=== PATIENT | male | born 1955 | race Caucasian/White ===

== ENCOUNTER → 2020-10-21 | Outpatient (CLI) | payer MEDICARE ==
[2020-10-21 10:42] LABS: EOS # 0.2 (0.04-0.40); EOS % 2.6 % (0.0-4.0); HEMATOCRIT 51.3 % (42.0-52.0); HEMOGLOBIN 17.1 g/dL (13.5-18.0); MEAN CELL VOLUME 92 fl (78-100); MEAN CORPUSCULAR HEMOGLOBIN 31 pg (27-31); MEAN CORPUSCULAR HGB CONC 33 g/dL (33-37); MEAN PLATELET VOLUME 9.9 fl (7.4-10.4); MONO # 0.7 (0.20-0.80); NEU # 4.9 (1.40-6.50); PLATELET COUNT 173 K/mm3 (130-400); RED BLOOD COUNT 5.58 M/mm3 (4.20-5.60); RED CELL DISTRIBUTION WIDTH 14.1 % (11.5-14.5); WHITE BLOOD COUNT 7.8 K/mm3 (4.8-10.8)
[2020-10-21 10:52] LABS: ALBUMIN 4.5 g/dL (3.4-4.8); POTASSIUM 4.1 mmol/L (3.5-5.1)
[2020-10-21 10:53] LABS: CALCIUM 9.6 mg/dL (8.3-10.5)
[2020-10-21 10:54] LABS: TOTAL PROTEIN 6.7 g/dL (6.2-8.1)
[2020-10-21 10:56] LABS: TOTAL BILIRUBIN 0.9 mg/dL (0.2-1.2)
[2020-10-21 12:31] LABS: URINE APPEARANCE CLEAR; URINE BILIRUBIN NEGATIVE (NEGATIVE); URINE BLOOD 50 ery/uL (NEGATIVE); URINE COLOR YELLOW; URINE GLUCOSE NEGATIVE (NEGATIVE); URINE KETONE NEGATIVE (NEGATIVE); URINE LEUKOCYTE ESTERASE TRACE (NEGATIVE); URINE NITRATE NEGATIVE (NEGATIVE); URINE PROTEIN(semi-quant) TRACE mg/dL (NEGATIVE); URINE UROBILINOGEN NORMAL (NORMAL)
== END ==
LOC: RAD 10:20
PROVIDERS: Physician Assistant
DX: N20.2 Calculus of kidney with calculus of ureter (principal); R03.0 Elevated blood-pressure reading, without diagnosis of hypertension

== ENCOUNTER → 2020-10-29 | Outpatient (CLI) | payer MEDICARE ==
[2020-10-29 17:17] LABS: URINE APPEARANCE CLEAR; URINE COLOR YELLOW
[2020-10-29 17:18] LABS: PH-URINE 5.5 (5.0 - 8.0); URINE BILIRUBIN NEGATIVE (NEGATIVE); URINE BLOOD TRACE (NEGATIVE); URINE GLUCOSE NEGATIVE (NEGATIVE); URINE KETONE NEGATIVE (NEGATIVE); URINE LEUKOCYTE ESTERASE TRACE (NEGATIVE); URINE MUCUS PRESENT (NOT PRESENT); URINE NITRATE NEGATIVE (NEGATIVE); URINE PROTEIN(semi-quant) 1+ mg/dL (NEGATIVE); URINE UROBILINOGEN NORMAL (NORMAL)
== END ==
LOC: LAB 16:54
PROVIDERS: Family Medicine
DX: R35.8 Other polyuria (principal)

== ENCOUNTER → 2020-10-29 | Outpatient (CLI) | payer MEDICARE ==
--- NOTE | 2020-10-29 17:43 | NUR ---
PER DR. DUNBAR HE WOULD LIKE AN EKG AND THEN SEND PATIENT TO ER IF WARRANTED. EKG DONE IN THE OFFICE DUE TO A FULL ER FOR DR. DUNBAR TO OBSERVE THE RHYTHM BEFORE BRINGING PATIENT TO ER. PATIENT IN SITTING POSITION AND TALKING. EKG COMPLETED WITH A-FIB NOTED. PER DR. DUNBAR HE WOULD LIKE TO KEEP PATIENT IN THE OFFICE FOR NOW UNTIL HE CAN CONSULT DR. DIAZ, CARDIOLOGY.
== END ==
LOC: AMSURD 17:24
DX: I48.91 Unspecified atrial fibrillation (principal)

== ENCOUNTER → 2020-11-09 | Outpatient (CLI) | payer MEDICARE ==
[2020-11-09 12:01] LABS: PROTHROMBIN TIME 28.2 SECONDS (9.0-12.0)
[2020-11-09 12:46] LABS: URINE APPEARANCE CLOUDY; URINE BILIRUBIN NEGATIVE (NEGATIVE); URINE BLOOD 250 ery/uL (NEGATIVE); URINE COLOR YELLOW; URINE GLUCOSE NEGATIVE (NEGATIVE); URINE KETONE NEGATIVE (NEGATIVE); URINE LEUKOCYTE ESTERASE TRACE (NEGATIVE); URINE NITRATE NEGATIVE (NEGATIVE); URINE PROTEIN(semi-quant) TRACE mg/dL (NEGATIVE); URINE UROBILINOGEN NORMAL (NORMAL)
== END ==
LOC: LAB 11:11
PROVIDERS: Family Medicine
DX: I48.91 Unspecified atrial fibrillation (principal); R35.8 Other polyuria

== ENCOUNTER → 2020-11-19 | Outpatient (CLI) | payer MEDICARE | LOC: LAB 09:53 | PROVIDERS: Family Medicine | DX: N13.2 Hydronephrosis with renal and ureteral calculous obstruction (principal) | CPT/HCPCS: Q9967 ==

== ENCOUNTER → 2020-11-20 | Outpatient (CLI) | payer MEDICARE ==
[2020-11-20 11:35] LABS: POTASSIUM 4.1 mmol/L (3.5-5.1)
[2020-11-20 11:36] LABS: CALCIUM 9.6 mg/dL (8.3-10.5)
[2020-11-20 11:42] LABS: PROTHROMBIN TIME 36.4 SECONDS (9.0-12.0)
== END ==
LOC: LAB 11:10
PROVIDERS: Family Medicine
DX: N20.0 Calculus of kidney (principal)

== ENCOUNTER → 2020-12-24 | Outpatient (CLI) | payer MEDICARE ==
[2020-12-24 12:09] LABS: URINE WBC >50 /hpf (0-3)
== END ==
LOC: LAB 11:42
PROVIDERS: Family Medicine
DX: N39.0 Urinary tract infection, site not specified (principal)

== ENCOUNTER → 2021-02-25 | Outpatient (CLI) | payer MEDICARE ==
[2021-02-25 12:34] LABS: POTASSIUM 4.3 mmol/L (3.5-5.1)
[2021-02-25 12:36] LABS: CALCIUM 9.8 mg/dL (8.3-10.5)
== END ==
LOC: LAB 12:01
PROVIDERS: Family Medicine
DX: I10 Essential (primary) hypertension (principal)

== ENCOUNTER → 2021-04-02 | Outpatient (CLI) | payer MEDICARE ==
[2021-04-02 12:23] VITALS: BP 196/97
[2021-04-02 12:47] VITALS: BP 177/83
== END ==
LOC: AMSURD 12:05
DX: Z79.899 Other long term (current) drug therapy (principal)
CPT/HCPCS: J0360

== ENCOUNTER → 2021-05-03 | Outpatient (CLI) | payer MEDICARE ==
[2021-05-03 11:48] LABS: CALCIUM 9.3 mg/dL (8.3-10.5)
== END ==
LOC: LAB 11:13
PROVIDERS: Family Medicine
DX: N18.30 Chronic kidney disease, stage 3 unspecified (principal)

== ENCOUNTER → 2021-06-02 | Outpatient (CLI) | payer MEDICARE | LOC: RAD 10:00 | DX: N13.30 Unspecified hydronephrosis (principal) ==

== ENCOUNTER → 2021-11-05 | Outpatient (CLI) | payer MEDICARE ==
[2021-11-05 10:26] LABS: POTASSIUM 4.7 mmol/L (3.5-5.1)
[2021-11-10 10:20] LABS: ALBUMIN 4.3 g/dL (3.4-4.8)
[2021-11-10 10:23] LABS: TOTAL PROTEIN 7.2 g/dL (6.2-8.1)
[2021-11-10 10:24] LABS: TOTAL BILIRUBIN 0.7 mg/dL (0.2-1.2)
[2021-11-10 10:28] LABS: DIRECT BILIRUBIN 0.2 mg/dL (0.0-0.5)
== END ==
LOC: LAB 10:00
PROVIDERS: Family Medicine
DX: N18.30 Chronic kidney disease, stage 3 unspecified (principal)

== ENCOUNTER 2022-01-27 17:18 | Emergency (ER) | payer MEDICARE ==
[~2022-01-27] VITALS: Ht 185.4 cm; Wt 100.0 kg
[2022-01-27] MEDS ORDERED: AMLODIPINE BES2.5 MG PO (17:44)
[2022-01-27] MEDS ORDERED: FUROSEMIDE20 MG (17:44)
[2022-01-27] MEDS ORDERED: CARVEDILOL25 MG PO (17:45)
[2022-01-27] MEDS ORDERED: LOSARTAN POTAS100 MG PO (17:45)
[2022-01-27 19:55] VITALS: BP 175/86
== END 2022-01-27 19:55 | disposition home or self-care (01) ==
LOC: ED 17:18
DX: I16.0 Hypertensive urgency (principal)

== ENCOUNTER 2022-01-31 11:02 | Emergency (ER) | payer MEDICARE ==
[~2022-01-31 11:02] MED LIST: AMLODIPINE BES2.5 MG PO; CARVEDILOL25 MG PO; FUROSEMIDE20 MG; LOSARTAN POTAS100 MG PO
[2022-01-31] MEDS ORDERED: AMLODIPINE BESYL5 MG PO (11:36)
[2022-01-31 12:42] VITALS: BP 155/82
== END 2022-01-31 12:32 | disposition home or self-care (01) ==
LOC: ED 11:02
DX: I16.0 Hypertensive urgency (principal); I10 Essential (primary) hypertension; Z98.890 Other specified postprocedural states; Z79.899 Other long term (current) drug therapy

== ENCOUNTER 2022-07-14 08:52 | Emergency (ER) | payer MEDICARE ==
[~2022-07-14 08:52] MED LIST changes: +AMLODIPINE BESYL5 MG PO
[2022-07-14 09:32] LABS: BASO # 0.03 K/mm3 (0.02-0.10); EOS # 0.27 K/mm3 (0.04-0.40); EOS % 3.4 % (0.0-4.0); HEMATOCRIT 47.4 % (42.0-52.0); HEMOGLOBIN 16.4 g/dL (13.5-18.0); MEAN CELL VOLUME 91 fl (78-100); MEAN CORPUSCULAR HEMOGLOBIN 31 pg (27-31); MEAN CORPUSCULAR HGB CONC 35 g/dL (33-37); MEAN PLATELET VOLUME 9.2 fl (7.4-10.4); NEU # 5.67 K/mm3 (1.40-6.50); PLATELET COUNT 176 K/mm3 (130-400); RED BLOOD COUNT 5.23 M/mm3 (4.20-5.60); WHITE BLOOD COUNT 7.9 K/mm3 (4.8-10.8)
[2022-07-14 09:38] LABS: ALBUMIN 4.4 g/dL (3.4-4.8); POTASSIUM 3.7 mmol/L (3.5-5.1)
[2022-07-14 09:41] LABS: TOTAL PROTEIN 7.1 g/dL (6.2-8.1)
[2022-07-14 09:42] LABS: TOTAL BILIRUBIN 0.6 mg/dL (0.2-1.2)
[2022-07-14 09:54] LABS: TROPONIN-I 0.037 ng/mL (<0.030)
[2022-07-14 10:17] LABS: D-DIMER 0.81 mg/L FEU (0.15-0.50); PARTIAL THROMBOPLASTIN TIME 25.5 SECONDS (21.0-32.0)
[2022-07-14 12:39] VITALS: BP 128/67
[2022-07-14 13:08] LABS: URINE APPEARANCE CLEAR; URINE COLOR LIGHT YELLOW
[2022-07-14 13:09] LABS: URINE BILIRUBIN NEGATIVE (NEGATIVE); URINE BLOOD TRACE (NEGATIVE); URINE GLUCOSE NEGATIVE (NEGATIVE); URINE KETONE TRACE (NEGATIVE); URINE LEUKOCYTE ESTERASE NEGATIVE (NEGATIVE); URINE NITRATE NEGATIVE (NEGATIVE); URINE PROTEIN(semi-quant) TRACE (NEGATIVE); URINE UROBILINOGEN NORMAL (NORMAL)
[2022-07-14 13:10] LABS: URINE WBC 0-1 /hpf (0-3)
== END 2022-07-14 12:25 | disposition home or self-care (01) ==
LOC: ED 08:52
PROVIDERS: Family Medicine
DX: I21.4 Non-ST elevation (NSTEMI) myocardial infarction (principal); N17.9 Acute kidney failure, unspecified; I48.91 Unspecified atrial fibrillation; Z86.79 Personal history of other diseases of the circulatory system; Z28.310 Unvaccinated for COVID-19
CPT/HCPCS: J7030; Q9967

== ENCOUNTER → 2022-07-19 | Outpatient (CLI) | payer MEDICARE ==
[2022-07-19 10:15] LABS: ALBUMIN 4.4 g/dL (3.4-4.8)
[2022-07-19 10:16] LABS: POTASSIUM 4.2 mmol/L (3.5-5.1); SODIUM 142 mmol/L (136-145)
[2022-07-19 10:17] LABS: CALCIUM 9.9 mg/dL (8.3-10.5)
[2022-07-19 10:18] LABS: GLUCOSE 111 mg/dL (75-110); TOTAL PROTEIN 7.1 g/dL (6.2-8.1)
[2022-07-19 10:19] LABS: CARBON DIOXIDE 23 mmol/L (23-31)
[2022-07-19 10:20] LABS: TOTAL BILIRUBIN 0.9 mg/dL (0.2-1.2)
[2022-07-19 10:23] LABS: AST-SGOT 15 U/L (5-34)
[2022-07-19 10:24] LABS: ALT/SGPT 17 U/L (0-55)
[2022-07-19 10:35] LABS: TROPONIN-I < 0.030 ng/mL (<0.030)
== END ==
LOC: LAB 09:53
PROVIDERS: Family Medicine
DX: I21.4 Non-ST elevation (NSTEMI) myocardial infarction (principal); N17.9 Acute kidney failure, unspecified; R79.1 Abnormal coagulation profile

== ENCOUNTER → 2023-08-01 | Outpatient (CLI) | payer MEDICARE ==
[2023-08-01 11:55] LABS: HEMATOCRIT 48.1 % (42.0-52.0); HEMOGLOBIN 16.1 g/dL (13.5-18.0); MEAN PLATELET VOLUME 9.3 fl (7.4-10.4); RED BLOOD COUNT 5.19 M/mm3 (4.20-5.60)
[2023-08-01 12:04] LABS: POTASSIUM 4.2 mmol/L (3.5-5.1)
[2023-08-01 12:05] LABS: CALCIUM 9.5 mg/dL (8.3-10.5)
== END ==
LOC: LAB 11:23
PROVIDERS: Internal Medicine Interventional Cardiology
DX: I48.0 Paroxysmal atrial fibrillation (principal)

== ENCOUNTER → 2023-10-18 | Outpatient (CLI) | payer MEDICARE ==
[2023-10-18 10:48] LABS: BASO # 0.04 K/mm3 (0.02-0.10); EOS # 0.41 K/mm3 (0.04-0.40); EOS % 4.8 % (0.0-4.0); HEMOGLOBIN 14.8 g/dL (13.5-18.0); MEAN CELL VOLUME 93 fl (78-100); MEAN CORPUSCULAR HEMOGLOBIN 31 pg (27-31); MEAN CORPUSCULAR HGB CONC 33 g/dL (33-37); MEAN PLATELET VOLUME 9.1 fl (7.4-10.4); NEU # 5.72 K/mm3 (1.40-6.50); PLATELET COUNT 227 K/mm3 (130-400); RED BLOOD COUNT 4.84 M/mm3 (4.20-5.60); RED CELL DISTRIBUTION WIDTH 13.9 % (11.5-14.5); WHITE BLOOD COUNT 8.6 K/mm3 (4.8-10.8)
[2023-10-18 10:54] LABS: ALBUMIN 4.6 g/dL (3.4-4.8)
[2023-10-18 10:56] LABS: CALCIUM 9.8 mg/dL (8.3-10.5)
[2023-10-18 10:57] LABS: TOTAL PROTEIN 7.4 g/dL (6.2-8.1)
[2023-10-18 10:59] LABS: TOTAL BILIRUBIN 1.1 mg/dL (0.2-1.2)
== END ==
LOC: LAB 10:27
PROVIDERS: Nurse Practitioner Family
DX: R05.3 Chronic cough (principal)

== ENCOUNTER 2024-04-24 10:35 | Emergency (ER) | payer MEDICARE ==
[~2024-04-24] VITALS: Ht 185.4 cm; Wt 109.1 kg
[2024-04-24] MEDS ORDERED: BISOPROLOL FUMA10 M1 PO ×2 (10:49→12:11)
[2024-04-24 11:22] LABS: BASO # 0.04 K/mm3 (0.02-0.10); EOS # 0.13 K/mm3 (0.04-0.40); EOS % 1.5 % (0.0-4.0); HEMATOCRIT 46.7 % (42.0-52.0); HEMOGLOBIN 15.8 g/dL (13.5-18.0); LYMPH# 1.41 K/mm3 (1.50-4.00); MEAN CELL VOLUME 93 fl (78-100); MEAN CORPUSCULAR HEMOGLOBIN 32 pg (27-31); MEAN CORPUSCULAR HGB CONC 34 g/dL (33-37); MEAN PLATELET VOLUME 9.5 fl (7.4-10.4); MONO # 0.72 K/mm3 (0.20-0.80); NEU # 6.38 K/mm3 (1.40-6.50); PLATELET COUNT 189 K/mm3 (130-400); RED CELL DISTRIBUTION WIDTH 13.4 % (11.5-14.5); WHITE BLOOD COUNT 8.7 K/mm3 (4.8-10.8)
[2024-04-24 11:24] LABS: ALBUMIN 4.2 g/dL (3.4-4.8)
[2024-04-24 11:25] LABS: SODIUM 140 mmol/L (136-145)
[2024-04-24 11:26] LABS: CALCIUM 9.7 mg/dL (8.3-10.5)
[2024-04-24 11:27] LABS: GLUCOSE 111 mg/dL (75-110); TOTAL PROTEIN 6.5 g/dL (6.2-8.1)
[2024-04-24 11:28] LABS: CARBON DIOXIDE 23 mmol/L (23-31)
[2024-04-24 11:29] LABS: TOTAL BILIRUBIN 0.6 mg/dL (0.2-1.2)
[2024-04-24 11:31] LABS: D-DIMER 0.22 mg/L FEU (0.15-0.50)
[2024-04-24 11:32] LABS: AST-SGOT 19 U/L (5-34)
[2024-04-24 11:34] LABS: ALT/SGPT 32 U/L (0-55)
[2024-04-24 11:39] LABS: TROPONIN-I < 0.030 ng/mL (0.00-0.033)
[2024-04-24] MEDS ORDERED: Bisoprolol 5 MG TAB PO SCH (11:42)
[2024-04-24 12:30] VITALS: BP 139/90
== END 2024-04-24 12:25 | disposition home or self-care (01) ==
LOC: ED 10:35
DX: I48.91 Unspecified atrial fibrillation (principal); Z95.818 Presence of other cardiac implants and grafts
CPT/HCPCS: J1920

== ENCOUNTER → 2025-01-24 | Outpatient (CLI) | payer MEDICARE ==
[~2025-01-24] MED LIST changes: +BISOPROLOL FUMA10 M1 PO; +COZAAR 50MG50 MG/TAB PO; +HCTZ 25MG25 MG PO; +NATTOKINASE50 MG PO; +PROTONIX TR40 M1 PO
[2025-01-24 15:53] LABS: ALBUMIN 4.2 g/dL (3.4-4.8)
[2025-01-24 15:55] LABS: CALCIUM 9.4 mg/dL (8.3-10.5)
[2025-01-24 15:56] LABS: TOTAL PROTEIN 7.2 g/dL (6.2-8.1)
[2025-01-24 15:58] LABS: TOTAL BILIRUBIN 0.6 mg/dL (0.2-1.2)
[2025-01-24 16:03] LABS: MAGNESIUM 2.45 mg/dL (1.60-2.60)
== END ==
LOC: LAB 12:31
PROVIDERS: Nurse Practitioner
DX: I10 Essential (primary) hypertension (principal)